=== PATIENT | female | born 1995 | race Caucasian/White ===

== ENCOUNTER 2023-12-13 08:24 | Emergency (ER) | payer SELFPAY | END 2023-12-13 09:37 | disposition home or self-care (01) | LOC: JD.ED 08:24 | DX: K64.4 Residual hemorrhoidal skin tags (principal); Z86.16 Personal history of COVID-19 | CPT/HCPCS: 99283 ==

== ENCOUNTER 2023-12-14 11:49 | Day surgery (SDC) | payer SELFPAY ==
[2023-12-14 12:11] LABS: BASOPHILS ABSOLUTE AUTO 0.1 K/mm3 (0.0-0.2); BASOPHILS PERCENT AUTO 0.5 % (0.0-1.0); EOSINOPHILS ABSOLUTE AUTO 0.2 K/mm3 (0.0-0.4); EOSINOPHILS PERCENT AUTO 1.3 % (0.0-6.0); HEMATOCRIT 41.4 % (37.0-47.0); HEMOGLOBIN 13.6 gm/dl (12.0-16.0); IMMATURE GRAN ABSOLUTE AUTO 0.08 K/mm3 (0.00-0.05); IMMATURE GRAN PERCENT AUTO 0.5 % (0.0-0.4); LYMPHOCYTES ABSOLUTE AUTO 1.9 K/mm3 (1.0-4.8); LYMPHOCYTES PERCENT AUTO 12.8 % (24.0-44.0); MEAN CORPUSCULAR HEMOGLOBIN 29.3 pg (28.0-32.0); MEAN CORPUSCULAR HGB CONC 32.9 g/dl (32.0-36.0); MEAN CORPUSCULAR VOLUME 89.2 fl (83.0-99.0); MEAN PLATELET VOLUME 9.9 fl (9.4-12.3); MONOCYTES ABSOLUTE AUTO 1.3 K/mm3 (0.0-0.8); MONOCYTES PERCENT AUTO 8.6 % (0.0-8.0); NEUTROPHILS ABSOLUTE AUTO 11.5 K/mm3 (1.8-7.7); NEUTROPHILS PERCENT AUTO 76.3 % (41.0-71.0); PLATELET COUNT,PLT 275 K/mm3 (150-400); RED BLOOD CELL COUNT 4.64 M/mm3 (4.10-5.30); WHITE BLOOD CELL COUNT,WBC 15.11 K/mm3 (3.9-11.3)
[2023-12-14] MEDS: Ketorolac 30 MG/ML SDV IVPUSH ONE (13:00)
[2023-12-14] MEDS ORDERED: fentaNYL 100 MCG/2 ML SDV IVPUSH PRN ×2 (13:05→16:12)
[2023-12-14] MEDS ORDERED: Ondansetron 4 MG/2 ML SDV IVPUSH PRN ×2 (13:05→16:12)
[2023-12-14] MEDS ORDERED: HYDROmorphone 0.5 MG/0.5 ML Syringe IVPUSH PRN ×2 (13:05→16:12)
[2023-12-14] MEDS ORDERED: Bacitracin Oint 15 GM Tube ONE (13:15)
[2023-12-14 13:24] LABS: ANION GAP 13.8 (5-15); BLOOD UREA NITROGEN,BUN 8 mg/dL (7-18); BUN/CREATININE RATIO 8.9 (14-18); CALCIUM 9.2 mg/dL (8.5-10.1); CARBON DIOXIDE,CO2 28 mEq/L (21-32); CHLORIDE,CL 100 mEq/L (98-107); CREATININE 0.9 mg/dL (0.55-1.02); ESTIMATED GFR 88 mL/min (>60); GLUCOSE RANDOM 91 mg/dL (70-99); POTASSIUM,K 3.8 mEq/L (3.5-5.1); SODIUM,NA 138 mEq/L (136-145)
[2023-12-14] MEDS ORDERED: fentaNYL 100 MCG/2 ML SDV ONE (13:37)
[2023-12-14] MEDS ORDERED: Midazolam 1 MG/ML 2 ML SDV ONE (13:37)
[2023-12-14] MEDS ORDERED: Propofol 200 MG/20 ML SDV ONE (13:37)
[2023-12-14] MEDS ORDERED: Lidocaine 1% 4 ML ONE (13:38)
[2023-12-14] MEDS ORDERED: Rocuronium 50 MG/5 ML Vial ONE (13:38)
[2023-12-14] MEDS ORDERED: Ondansetron 4 MG/2 ML SDV ONE (13:40)
[2023-12-14] MEDS ORDERED: Lactated Ringers 1,000 ML IV ONE (15:00)
[2023-12-14] MEDS ORDERED: Succinylcholine 200 MG/10 ML MDV ONE (15:45)
[2023-12-14] MEDS ORDERED: Dexamethasone 4 MG/ML 5 ML MDV ONE (15:45)
[2023-12-14] MEDS: Lidocaine 2% 20 ML MDV ONE (16:03)
[2023-12-14] MEDS: Ropivacaine 0.5% 5 MG/ML 30 ML SDV ONE (16:03)
[2023-12-14] MEDS: Bupivacaine 0.5% 30 ML SDV ONE (16:03)
[2023-12-14] MEDS: Lidocaine 2% 11 ML Jelly Filled Syringe ONE (16:03)
[2023-12-14] MEDS ORDERED: Lidocaine 2% 11 ML Jelly Filled Syringe ONE (16:26)
[2023-12-14] MEDS: Ketorolac 30 MG/ML SDV IVPUSH PRN (18:14)
== END 2023-12-14 18:35 | disposition home or self-care (01) ==
LOC: JD.SDS 11:49
PROVIDERS: ATTEND Family Medicine
DX: K64.4 Residual hemorrhoidal skin tags (principal); Z87.59 Personal history of other complications of pregnancy, childbirth and the puerperium; Z98.51 Tubal ligation status; Z79.899 Other long term (current) drug therapy
CPT/HCPCS: 36415; 46250; 80048; 81025; 85025; 85730; A9270; J0330; J0665; J1100; J1885; J2001; J2250; J2405; J2704; J2795; J3010; J7120; J3490